=== PATIENT | male | born 1975 | race American Indian/Alaskan Native ===

== ENCOUNTER 2019-09-25 06:12 | Emergency (ER) | payer BC ==
[2019-09-25] MEDS ORDERED: Albuterol/Ipratropium 3.0-0.5 MG/3 ML Neb Soln NEB ONE (06:18)
[2019-09-25] MEDS ORDERED: methylPREDNISolone Sodium Succinate 125 MG/2 ML SDV IM ONE (06:18)
--- NOTE | 2019-09-25 06:20 | EDM.PDOC ---
ED HPI GENERAL MEDICAL PROBLEM - General Stated Complaint: TROUBLE BREATHING Time Seen by Provider: 09/25/19 06:19 Source of Information: Reports: Patient History Limitations: Reports: No Limitations - History of Present Illness INITIAL COMMENTS - FREE TEXT/NARRATIVE: onset Wednesday. worse this morning - Related Data Allergies Allergy/AdvReac Type Severity Reaction Status Date / Time No Known Allergies Allergy Verified 09/25/19 06:23 Home Meds: Home Meds Albuterol [Ventolin HFA] PRN 10/15/13 [History] Tiotropium [Spiriva Handihaler] 10/15/13 [History] Albuterol Sulfate 12/31/13 [History] Fluticasone/Salmeterol [Advair 500-50] 12/31/13 [History] Symbicort 12/31/13 [History] Past Medical History Respiratory History: Reports: Asthma, COPD Endocrine/Metabolic History: Reports: None - Infectious Disease History Infectious Disease History: Reports: Chicken Pox ED ROS GENERAL - Review of Systems Review Of Systems: Comprehensive ROS is negative, except as noted in HPI. ED EXAM, GENERAL - Physical Exam Exam: See Below Exam Limited By: No Limitations General Appearance: Alert, WD/WN, Mild Distress, Other (sob) Ears: Hearing Grossly Normal Throat/Mouth: Normal Voice, No Airway Compromise Head: Atraumatic Neck: Non-Tender, Full Range of Motion Respiratory/Chest: Decreased Breath Sounds, Rhonchi, Wheezing Cardiovascular: Regular Rate, Rhythm GI/Abdominal: Soft, Non-Tender Neurological: Alert, Oriented, Normal Cognition, Normal Gait, No Motor/Sensory Deficits Psychiatric: Normal Affect, Normal Mood Skin Exam: Warm, Dry, Normal Color Lymphatic: No Adenopathy Course - Vital Signs Last Recorded V/S: Last Vital Signs Temp 36.5 C 09/25/19 06:23 Pulse 84 09/25/19 06:23 Resp 18 09/25/19 06:23 BP 136/85 09/25/19 06:23 Pulse Ox 97 09/25/19 06:34 - Orders/Labs/Meds Orders: Active Orders 24 hr Category Date Time Status RT Aerosol Therapy [RC] ASDIRECTED Care 09/25/19 06:18 Active Meds: Medications Discontinued Medications Generic Name Dose Route Start Last Admin Trade Name Freq PRN Reason Stop Dose Admin Albuterol/Ipratropium 3 ml 09/25/19 06:18 09/25/19 06:30 Duoneb 3.0-0.5 Mg/3 Ml NEB 09/25/19 06:19 3 ml ONETIME ONE Administration Methylprednisolone Sodium Succinate 125 mg 09/25/19 06:18 09/25/19 06:30 Solu-Medrol IM 09/25/19 06:19 125 mg ONETIME ONE Administration - Re-Assessments/Exams Free Text/Narrative Re-Assessment/Exam: 09/25/19 06:55 re-exam; s/p duoneb + IM solumedrol = much better and ready to go home. Departure - Departure Time of Disposition: 06:55 Disposition: Home, Self-Care 01 Condition: Good Clinical Impression: Exacerbation of asthma - Discharge Information Instructions: Asthma, Adult, [id number] Forms: ED Department Discharge Additional Instructions: 1) continue neb treatment at home 2) don't sleep flat at night 3) follow up at clinic rx given; medrol dospak Sepsis Event Note - Focused Exam Vital Signs: Vital Signs Temp Pulse Resp BP Pulse Ox 09/25/19 06:34 97 09/25/19 06:23 36.5 C 84 18 136/85 94 L Date Exam was Performed: 09/25/19 Time Exam was Performed: 06:55 - My Orders Last 24 Hours: My Active Orders 09/25/19 06:18 RT Aerosol Therapy [RC] ASDIRECTED - Assessment/Plan Last 24 Hours: My Active Orders 09/25/19 06:18 RT Aerosol Therapy [RC] ASDIRECTED
[2019-09-25 06:30] VITALS: BP 136/85; PULSE 84
== END 2019-09-25 07:08 | disposition home or self-care (01) ==
LOC: DL.ED 06:12
DX: J45.901 Unspecified asthma with (acute) exacerbation (principal)
CPT/HCPCS: 96372; 99284; J2930; J7620-GY

== ENCOUNTER 2019-10-31 02:42 | Emergency (ER) | payer BC ==
[2019-10-31 02:50] VITALS: BP 157/71; PULSE 84
[2019-10-31] MEDS ORDERED: Albuterol 0.083% 2.5 MG/3 ML Neb Soln ONE (02:50)
[2019-10-31] MEDS ORDERED: Sodium Chloride 0.9% 10 ML Syringe FLUSH PRN (02:54)
[2019-10-31] MEDS ORDERED: Budesonide 0.5 MG/2 ML Neb Susp NEB ONE (02:55)
[2019-10-31] MEDS ORDERED: Albuterol/Ipratropium 3.0-0.5 MG/3 ML Neb Soln NEB ONE (02:55)
[2019-10-31] MEDS ORDERED: Albuterol 0.083% 2.5 MG/3 ML Neb Soln NEB ONE (02:55)
[2019-10-31] MEDS ORDERED: methylPREDNISolone Sodium Succinate 125 MG/2 ML SDV IVPUSH ONE (02:56)
--- NOTE | 2019-10-31 03:04 | EDM.PDOC ---
ED HPI GENERAL MEDICAL PROBLEM - General Chief Complaint: Respiratory Problem Stated Complaint: CHEST PAIN Time Seen by Provider: 10/31/19 02:50 Source of Information: Reports: Patient History Limitations: Reports: Language Barrier (The patient is deaf. ) - History of Present Illness INITIAL COMMENTS - FREE TEXT/NARRATIVE: Patient comes emergency department today with complaints of shortness of breath and difficulty breathing. HPI is somewhat limited as the patient is deaf but through communication by writing he has had a fever the last couple of days. He has had increase in tightness and shortness of breath. He does have a history of COPD. He has had increased amount of sputum production. His loss of taste or smell. Denies any COVID exposure. Denies any recent travel. He has some tightness in his chest but no chest pain. No diaphoresis. No abdominal pain. He does not smoke cigarettes any more. Chest Pain Score (Numeric/FACES): 5 - Related Data Allergies Allergy/AdvReac Type Severity Reaction Status Date / Time No Known Allergies Allergy Verified 10/31/19 02:54 Home Meds: Home Meds Albuterol [Ventolin HFA] PRN 10/15/13 [History] Tiotropium [Spiriva Handihaler] 10/15/13 [History] Albuterol Sulfate 12/31/13 [History] Fluticasone/Salmeterol [Advair 500-50] 12/31/13 [History] Symbicort 12/31/13 [History] Past Medical History Respiratory History: Reports: Asthma, COPD Endocrine/Metabolic History: Reports: None - Infectious Disease History Infectious Disease History: Reports: Chicken Pox Social & Family History - Tobacco Use Smoking Status *Q: Never Smoker Second Hand Smoke Exposure: No - Caffeine Use Caffeine Use: Reports: None - Recreational Drug Use Recreational Drug Use: No ED ROS GENERAL - Review of Systems Review Of Systems: Comprehensive ROS is negative, except as noted in HPI. ED EXAM, GENERAL - Physical Exam Exam: See Below Free Text/Narrative:: Pt has a congested cough and he is sitting in the tri-pod position. Exam Limited By: Language Barrier (Deaf) General Appearance: Alert, WD/WN, Moderate Distress Eye Exam: Bilateral Eye: EOMI Ears: Normal External Exam Nose: Normal Inspection Throat/Mouth: Normal Inspection, Normal Lips, Normal Oropharynx, Normal Voice Head: Atraumatic, Normocephalic Neck: Normal Inspection, Supple, Non-Tender, Full Range of Motion Respiratory/Chest: Chest Non-Tender, Decreased Breath Sounds (throughout), Wheezing (inspiratory and expiratory sitting in the tri-pod position. ), Accessory Muscle Use. No: Rhonchi, Retractions Cardiovascular: Normal Peripheral Pulses, Regular Rate, Rhythm GI/Abdominal: Normal Bowel Sounds, Soft (Male) Exam: Deferred Rectal (Males) Exam: Deferred Back Exam: Normal Inspection Extremities: Normal Inspection, Normal Range of Motion, Normal Capillary Refill Neurological: Alert, Oriented, Normal Cognition, No Motor/Sensory Deficits Psychiatric: Normal Affect, Normal Mood Skin Exam: Intact, No Rash, Diaphoretic, Pallor Course - Vital Signs Last Recorded V/S: Last Vital Signs Temp 98.1 F 10/31/19 02:46 Pulse 84 10/31/19 02:46 Resp 24 H 10/31/19 02:46 BP 157/71 H 10/31/19 02:46 Pulse Ox 96 10/31/19 02:46 - Orders/Labs/Meds Orders: Active Orders 24 hr Category Date Time Status Peripheral IV Care [RC] . DIRECTED Care 10/31/19 02:55 Active RT Aerosol Therapy [RC] ASDIRECTED Care 10/31/19 02:55 Active Peripheral IV Insertion Adult [OM.PC] Stat Oth 10/31/19 02:54 Ordered Labs: Laboratory Tests 10/31/19 10/31/19 10/31/19 Range/Units 02:50 02:50 03:00 WBC 6.2 (5.0-10.0) 10^3/uL RBC 4.96 (4.6-6.2) 10^6/uL Hgb 15.2 (14.0-18.0) g/dL Hct 45.1 (40.0-54.0) % MCV 90.9 (80-100) fL MCH 30.6 (27.0-34.0) pg MCHC 33.7 (33.0-35.0) g/dL Plt Count 213 (150-450) 10^3/uL Neut % (Auto) 44.6 (42.2-75.2) % Lymph % (Auto) 36.9 (20.5-50.1) % [place] % (Auto) 9.8 H (2-8) % Eos % (Auto) 8.2 H (1.0-3.0) % Baso % (Auto) 0.5 (0.0-1.0) % Sodium 142 (136-145) mmol/L Potassium 4.0 (3.5-5.1) mmol/L Chloride 105 (98-107) mmol/L Carbon Dioxide 30 (21-32) mmol/L Anion Gap 11.0 (7-13) mEq/L BUN 23 H (7-18) mg/dL Creatinine 0.84 (0.70-1.30) mg/dL Est Cr Clr Drug Dosing 106.31 mL/min Estimated GFR (MDRD) > 60 BUN/Creatinine Ratio 27.4 (No establ ref range) Glucose 96 (74-99) mg/dL Calcium 9.0 (8.5-10.1) mg/dL Total Bilirubin 0.4 (0.2-1.0) mg/dL AST 14 L (15-37) U/L ALT 32 (16-63) U/L Alkaline Phosphatase 87 (46-116) U/L C-Reactive Protein < 0.2 (0.0-0.9) mg/dL Total Protein 7.6 (6.4-8.2) g/dL Albumin 3.8 (3.4-5.0) g/dL Globulin 3.8 Albumin/Globulin Ratio 1.0 COVID-19 (CARI) Negative (NEGATIVE) Meds: Medications Discontinued Medications Generic Name Dose Route Start Last Admin Trade Name Margret PRN Reason Stop Dose Admin Albuterol Confirm 10/31/19 02:50 10/31/19 03:18 Proventil Neb Soln Administered 10/31/19 02:51 Not Given Dose 2.5 mg .ROUTE .STK-MED ONE Albuterol 2.5 mg 10/31/19 02:55 10/31/19 03:17 Proventil Neb Soln NEB 10/31/19 02:56 2.5 mg ONETIME ONE Administration Albuterol/Ipratropium 3 ml 10/31/19 02:55 10/31/19 03:17 Duoneb 3.0-0.5 Mg/3 Ml NEB 10/31/19 02:56 3 ml ONETIME ONE Administration Budesonide 1 mg 10/31/19 02:55 10/31/19 03:16 Pulmicort NEB 10/31/19 02:56 1 mg ONETIME ONE Administration Doxycycline Hyclate 100 mg 10/31/19 03:46 10/31/19 04:06 Vibramycin PO 10/31/19 03:47 100 mg ONETIME ONE Administration Methylprednisolone Sodium Succinate 125 mg 10/31/19 02:56 10/31/19 03:18 Solu-Medrol IVPUSH 10/31/19 02:57 125 mg ONETIME ONE Administration Sodium Chloride 10 ml 10/31/19 02:54 10/31/19 03:19 Saline Flush FLUSH 10 ml ASDIRECTED PRN Administration Keep Vein Open - Radiology Interpretation Free Text/Narrative:: X-ray per radiology states no acute findings. Although when I look at the chest x-ray when compared to 1 in May 2015 in the right lower lobe it looks like there is either some early or small atelectasis unlikely pneumonia. - Re-Assessments/Exams Free Text/Narrative Re-Assessment/Exam: 10/31/19 03:49 Patient was given albuterol nebulizer as well as a DuoNeb and then budesonide. Solu-Medrol 125 mg IV push. The patient's respiratory distress was much improved following the above therapy. We had complete resolution of the inspiratory wheezing and he has some faint expiratory wheezing. His work of breathing is much improved. He has not tripod position anymore. He appears in no acute distress. His chest x-ray was read by radiology as normal although I have concerns for some very small atelectasis in the right lower lobe when compared to previous it does not look like it consolidate this is very minor. 10/31/19 03:51 With a rather impressive amount of COPD exacerbation we will place him on doxycycline and cover him empirically for the next 7 days. We will also give him a burst dose steroids his first dose was given in the emergency department given prescription for prednisone for 60 mg for the next 5 days. He does have a nebulizer at home which she can use for acute symptoms. He is comfortable with this plan his questions are answered. Departure - Departure Time of Disposition: 04:00 Disposition: Home, Self-Care 01 Clinical Impression: COPD with exacerbation - Discharge Information Instructions: Chronic Obstructive Pulmonary Disease Exacerbation, [id number] Referrals: PCP,None [Primary Care Provider] - Forms: ED Department Discharge Additional Instructions: Lots of fluids over the next few days. This will help thin the secretions so you can clear them more easily. Continue your home nebulizers. If your really SOB use an Albuterol or Ipratropium nebulizer instead of an inhaler this will work much better to get the medication all the way through the lungs. Prednisone 60mg a day for the next 5 days. RX given to the patient. Doxycycline 1 tablet twice daily for the next 7 days. RX given to the patient. Return to the ED if new or worsening symptoms. Follow up with PCP in the next 4-6 days if not improving sooner if worse. Sepsis Event Note (ED) - Evaluation Sepsis Screening Result: No Definite Risk - My Orders Last 24 Hours: My Active Orders 10/31/19 02:54 Peripheral IV Insertion Adult [OM.PC] Stat 10/31/19 02:55 Peripheral IV Care [RC] . DIRECTED RT Aerosol Therapy [RC] ASDIRECTED - Assessment/Plan Last 24 Hours: My Active Orders 10/31/19 02:54 Peripheral IV Insertion Adult [OM.PC] Stat 10/31/19 02:55 Peripheral IV Care [RC] . DIRECTED RT Aerosol Therapy [RC] ASDIRECTED Assessment:: COPD exacerbation. Plan: Lots of fluids over the next few days. This will help thin the secretions so you can clear them more easily. Continue your home nebulizers. If your really SOB use an Albuterol or Ipratropium nebulizer instead of an inhaler this will work much better to get the medication all the way through the lungs. Prednisone 60mg a day for the next 5 days. RX given to the patient. Doxycycline 1 tablet twice daily for the next 7 days. RX given to the patient. Return to the ED if new or worsening symptoms. Follow up with PCP in the next 4-6 days if not improving sooner if worse.
[2019-10-31 03:12] LABS: CHLORIDE,CL 105 mmol/L (98-107); SODIUM,NA 142 mmol/L (136-145)
[2019-10-31] MEDS ORDERED: Doxycycline 100 MG Cap PO ONE (03:46)
--- NOTE | 2019-10-31 03:48 | CR ---
PROCEDURE INFORMATION: Exam: XR Chest, 2 Views Exam date and time: 10/31/2019 2:55 AM Age: 44 years old Clinical indication: Shortness of breath and wheezing; Additional info: SOB wheezing TECHNIQUE: Imaging protocol: XR of the chest Views: 2 views. COMPARISON: CR Chest 2V 06/05/2015 10:13 PM FINDINGS: Lungs: Unremarkable. No consolidation. Pleural space: Unremarkable. No pleural effusion. No pneumothorax. Heart/Mediastinum: Unremarkable. No cardiomegaly. Bones/joints: Unremarkable. IMPRESSION: No acute findings.
== END 2019-10-31 04:18 | disposition home or self-care (01) ==
LOC: DL.ED 02:42
DX: J44.1 Chronic obstructive pulmonary disease with (acute) exacerbation (principal); Z20.828 Contact with and (suspected) exposure to other viral communicable diseases
CPT/HCPCS: 36415; 71046; 80053; 85025; 86140; 87635; 96374; 99285; A9270; J2930; 99283; J7613-GY; J7620-GY; U0002

== ENCOUNTER 2020-04-26 13:39 | Emergency (ER) | payer BC ==
[2020-04-26] MEDS ORDERED: Albuterol/Ipratropium 3.0-0.5 MG/3 ML Neb Soln NEB ONE (13:59)
[2020-04-26] MEDS ORDERED: predniSONE 20 MG Tab PO ONE (13:59)
[2020-04-26 14:14] VITALS: BP 133/84; PULSE 84
--- NOTE | 2020-04-26 15:27 | EDM.PDOC ---
Scribed by Angélica Moctezuma 04/26/20 1412 for Aryan Collado MD ED HPI GENERAL MEDICAL PROBLEM - General Chief Complaint: Respiratory Problem Stated Complaint: ASTHMA Time Seen by Provider: 04/26/20 13:51 Source of Information: Reports: Patient, RN, RN Notes Reviewed History Limitations: Reports: No Limitations - History of Present Illness INITIAL COMMENTS - FREE TEXT/NARRATIVE: Patient presents to ED by POV stating that he has been wheezing for a few days, using inhaler and nebulizer but they are not working. Usually if he wheezes the breathing treatments stop the wheezing right away. Admits to mild runny nose. Denies difficulty breathing and fever. He doesn't know if he has had any COVID exposures but has been around people. Onset: Gradual Duration: Getting Worse Location: Reports: Chest Quality: Reports: Ache Severity: Moderate Improves with: Reports: None Worsens with: Reports: None Associated Symptoms: Reports: No Other Symptoms Treatments WRITER: Reports: Other (see below) (breathing treatments) - Related Data Allergies Allergy/AdvReac Type Severity Reaction Status Date / Time No Known Allergies Allergy Verified 04/26/20 13:46 Home Meds: Home Meds Albuterol [Ventolin HFA] 2 puff INH Q4H PRN 10/15/13 [History] Tiotropium [Spiriva Handihaler] 1 puff INH DAILY 10/15/13 [History] Albuterol Sulfate 1 unit INH Q4H PRN 12/31/13 [History] Fluticasone/Salmeterol [Advair 500-50] 1 puff INH BID 12/31/13 [History] Symbicort 1 puff INH BID 12/31/13 [History] Past Medical History Respiratory History: Reports: Asthma, COPD Endocrine/Metabolic History: Reports: None - Infectious Disease History Infectious Disease History: Reports: Chicken Pox Social & Family History - Family History Family Medical History: Unobtainable - Caffeine Use Caffeine Use: Reports: None - Living Situation & Occupation Occupation: Employed ED ROS GENERAL - Review of Systems Review Of Systems: Comprehensive ROS is negative, except as noted in HPI. ED EXAM, GENERAL - Physical Exam Exam: See Below Exam Limited By: No Limitations General Appearance: Alert, WD/WN, No Apparent Distress Eye Exam: Bilateral Eye: Normal Inspection Nose: Normal Mucosa, No Blood, Nasal Drainage (Mild, clear) Throat/Mouth: Normal Inspection, No Airway Compromise Head: Atraumatic, Normocephalic Neck: Normal Inspection, Supple, Non-Tender, Full Range of Motion Respiratory/Chest: No Respiratory Distress, No Accessory Muscle Use, Chest Non- Tender, Wheezing. No: Respiratory Distress, Crackles, Rales, Rhonchi Cardiovascular: Regular Rate, Rhythm Extremities: Normal Inspection, No Pedal Edema Neurological: Alert, Oriented, No Motor/Sensory Deficits Psychiatric: Normal Mood Skin Exam: Warm, Dry, Intact, Normal Color, No Rash Course - Vital Signs Last Recorded V/S: Last Vital Signs Temp 98 F 04/26/20 13:40 Pulse 84 04/26/20 13:40 Resp 18 04/26/20 13:40 BP 133/84 04/26/20 13:40 Pulse Ox 96 04/26/20 13:40 - Orders/Labs/Meds Orders: Active Orders 24 hr Category Date Time Status RT Aerosol Therapy [RC] ASDIRECTED Care 04/26/20 13:59 Active Labs: Laboratory Tests 04/26/20 Range/Units 14:10 SARS-CoV-2 RNA (CARI) Negative (NEGATIVE) Meds: Medications Discontinued Medications Generic Name Dose Route Start Last Admin Trade Name Freq PRN Reason Stop Dose Admin Albuterol/Ipratropium 3 ml 04/26/20 13:59 04/26/20 14:17 Duoneb 3.0-0.5 Mg/3 Ml NEB 04/26/20 14:00 3 ml ONETIME ONE Administration Prednisone 60 mg 04/26/20 13:59 04/26/20 14:16 Prednisone PO 04/26/20 14:00 60 mg ONETIME ONE Administration Departure - Departure Time of Disposition: 14:09 Disposition: Home, Self-Care 01 Condition: Good Clinical Impression: COPD with exacerbation - Discharge Information *PRESCRIPTION DRUG MONITORING PROGRAM REVIEWED*: Not Applicable *COPY OF PRESCRIPTION DRUG MONITORING REPORT IN PATIENT VITOR: Not Applicable Instructions: Chronic Obstructive Pulmonary Disease Exacerbation, [id number] Forms: ED Department Discharge Additional Instructions: Rx: DuoNeb Solution Rx: Prednisone 20mg Follow up in clinic if not improving as expected next week. Return to ER if you develop any difficulty breathing. Sepsis Event Note (ED) - Focused Exam Vital Signs: Vital Signs Temp Pulse Resp BP Pulse Ox 04/26/20 13:40 98 F 84 18 133/84 96 - My Orders Last 24 Hours: My Active Orders 04/26/20 13:59 RT Aerosol Therapy [RC] ASDIRECTED - Assessment/Plan Last 24 Hours: My Active Orders 04/26/20 13:59 RT Aerosol Therapy [RC] ASDIRECTED I have read and agree with the documentation that has been completed regarding this visit. By signing this record, I attest that the documentation was completed in my physical presence and is an accurate record of the encounter.
== END 2020-04-26 15:41 | disposition home or self-care (01) ==
LOC: DL.ED 13:39
DX: J44.1 Chronic obstructive pulmonary disease with (acute) exacerbation (principal); Z20.822 Contact with and (suspected) exposure to COVID-19; Z79.899 Other long term (current) drug therapy; Z20.828 Contact with and (suspected) exposure to other viral communicable diseases
CPT/HCPCS: 87635; 94640; 99285; J7512; 99283; J7620-GY; U0002

== ENCOUNTER 2020-06-14 20:47 | Emergency (ER) | payer BC ==
[2020-06-14 20:58] VITALS: BP 142/76; PULSE 100
[2020-06-14] MEDS ORDERED: methylPREDNISolone Sodium Succinate 125 MG/2 ML SDV IVPUSH ONE (21:02)
[2020-06-14] MEDS ORDERED: Albuterol/Ipratropium 3.0-0.5 MG/3 ML Neb Soln NEB ONE (21:04)
--- NOTE | 2020-06-14 21:39 | CR ---
PROCEDURE INFORMATION: Exam: XR Chest, 1 View Exam date and time: 06/14/2020 9:33 PM Age: 44 years old Clinical indication: Shortness of breath and other: Asthma; Additional info: Asthma SOB TECHNIQUE: Imaging protocol: XR of the chest Views: 1 view. COMPARISON: CR Chest 2V 10/31/2019 2:55 AM FINDINGS: Lungs: Unremarkable. No consolidation. Pleural spaces: Unremarkable. No pleural effusion. No pneumothorax. Heart/Mediastinum: Unremarkable. No cardiomegaly. Bones/joints: Unremarkable. IMPRESSION: No acute findings.
[2020-06-14 21:40] LABS: ANION GAP 12.7 mEq/L (7-13); CHLORIDE,CL 103 mmol/L (98-107); SODIUM,NA 141 mmol/L (136-145)
--- NOTE | 2020-06-14 22:06 | EDM.PDOC ---
ED HPI GENERAL MEDICAL PROBLEM - General Chief Complaint: Respiratory Problem Stated Complaint: UNABLE TO BREATH Time Seen by Provider: 06/14/20 20:55 Source of Information: Reports: Patient History Limitations: Reports: No Limitations - History of Present Illness INITIAL COMMENTS - FREE TEXT/NARRATIVE: ED c/o SOB started tonight, using inhaler frequently but not helping, No fever, Cough dry. Hx asthma. Bilateral Chest Pain Score (Numeric/FACES): 4 - Related Data Allergies Allergy/AdvReac Type Severity Reaction Status Date / Time No Known Allergies Allergy Verified 04/26/20 13:46 Home Meds: Home Meds Albuterol [Ventolin HFA] 2 puff INH Q4H PRN 10/15/13 [History] Tiotropium [Spiriva Handihaler] 1 puff INH DAILY 10/15/13 [History] Albuterol Sulfate 1 unit INH Q4H PRN 12/31/13 [History] Fluticasone/Salmeterol [Advair 500-50] 1 puff INH BID 12/31/13 [History] Symbicort 1 puff INH BID 12/31/13 [History] Past Medical History Respiratory History: Reports: Asthma, COPD Endocrine/Metabolic History: Reports: None - Infectious Disease History Infectious Disease History: Reports: Chicken Pox, Novel Coronavirus Social & Family History - Tobacco Use Tobacco Use Status *Q: Never Tobacco User Second Hand Smoke Exposure: No - Caffeine Use Caffeine Use: Reports: None - Recreational Drug Use Recreational Drug Use: No ED ROS GENERAL - Review of Systems Review Of Systems: Comprehensive ROS is negative, except as noted in HPI. ED EXAM, GENERAL - Physical Exam Exam: See Below Exam Limited By: No Limitations General Appearance: Alert, Mild Distress Eye Exam: Bilateral Eye: EOMI Ears: No: Hearing Grossly Normal (deaf) Nose: Normal Inspection Throat/Mouth: Normal Inspection Head: Atraumatic, Normocephalic Neck: Normal Inspection Respiratory/Chest: Wheezing, Accessory Muscle Use Cardiovascular: Normal Peripheral Pulses, Regular Rate, Rhythm GI/Abdominal: Normal Bowel Sounds, Soft Extremities: Normal Inspection, Normal Range of Motion Neurological: Alert, Oriented, Normal Cognition Psychiatric: Normal Affect Skin Exam: Warm, Dry, Intact, Normal Color Course - Vital Signs Last Recorded V/S: Last Vital Signs Temp 97.8 F 06/14/20 20:50 Pulse 100 06/14/20 20:50 Resp 24 H 06/14/20 20:50 BP 142/76 H 06/14/20 20:50 Pulse Ox 94 L 06/14/20 20:50 - Orders/Labs/Meds Labs: Laboratory Tests 06/14/20 06/14/20 06/14/20 Range/Units 21:15 21:15 21:15 WBC 6.2 (5.0-10.0) 10^3/uL RBC 4.91 (4.6-6.2) 10^6/uL Hgb 15.2 (14.0-18.0) g/dL Hct 44.6 (40.0-54.0) % MCV 90.8 (80-100) fL MCH 31.0 (27.0-34.0) pg MCHC 34.1 (33.0-35.0) g/dL Plt Count 223 (150-450) 10^3/uL Neut % (Auto) 48.6 (42.2-75.2) % Lymph % (Auto) 34.0 (20.5-50.1) % [place] % (Auto) 8.5 H (2-8) % Eos % (Auto) 8.4 H (1.0-3.0) % Baso % (Auto) 0.5 (0.0-1.0) % Sodium 141 (136-145) mmol/L Potassium 3.7 (3.5-5.1) mmol/L Chloride 103 (98-107) mmol/L Carbon Dioxide 29 (21-32) mmol/L Anion Gap 12.7 (7-13) mEq/L BUN 19 H (7-18) mg/dL Creatinine 0.81 (0.70-1.30) mg/dL Est Cr Clr Drug Dosing 125.08 mL/min Estimated GFR (MDRD) > 60 BUN/Creatinine Ratio 23.5 (No establ ref range) Glucose 121 H (74-99) mg/dL Lactic Acid 0.9 (0.4-2.0) mmol/L Calcium 8.8 (8.5-10.1) mg/dL Total Bilirubin 0.4 (0.2-1.0) mg/dL AST 15 (15-37) U/L ALT 28 (16-63) U/L Alkaline Phosphatase 87 (46-116) U/L Total Protein 7.9 (6.4-8.2) g/dL Albumin 3.8 (3.4-5.0) g/dL Globulin 4.1 Albumin/Globulin Ratio 0.9 Meds: Medications Discontinued Medications Generic Name Dose Route Start Last Admin Trade Name Christianoq PRN Reason Stop Dose Admin Albuterol/Ipratropium 3 ml 06/14/20 21:04 06/14/20 21:18 Duoneb 3.0-0.5 Mg/3 Ml NEB 06/14/20 21:05 3 ml ONETIME ONE Administration Methylprednisolone Sodium Succinate 125 mg 06/14/20 21:02 06/14/20 21:19 Solu-Medrol IVPUSH 06/14/20 21:03 125 mg ONETIME ONE Administration - Re-Assessments/Exams Free Text/Narrative Re-Assessment/Exam: 06/15/20 01:59 Improved following solumedrol and nebulizer. Departure - Departure Time of Disposition: 22:03 Disposition: Home, Self-Care 01 Condition: Good Clinical Impression: Exacerbation of asthma Qualifiers: Asthma severity: moderate Asthma persistence: persistent Qualified Code(s): J45.41 - Moderate persistent asthma with (acute) exacerbation - Discharge Information *PRESCRIPTION DRUG MONITORING PROGRAM REVIEWED*: No *COPY OF PRESCRIPTION DRUG MONITORING REPORT IN PATIENT VITOR: No Instructions: Asthma, Adult, [id number] Forms: ED Department Discharge Additional Instructions: albuterol neb every 4 hours as needed prednisone as ordered follow up if symptoms getting worse agin or having to use inhalers/nebulizer more often follow up if fever or productive cough Sepsis Event Note (ED) - Evaluation Sepsis Screening Result: No Definite Risk - Focused Exam Vital Signs: Vital Signs Temp Pulse Resp BP Pulse Ox 06/14/20 20:50 97.8 F 100 24 H 142/76 H 94 L
== END 2020-06-14 22:11 | disposition home or self-care (01) ==
LOC: DL.ED 20:47
DX: J45.41 Moderate persistent asthma with (acute) exacerbation (principal); Z79.899 Other long term (current) drug therapy
CPT/HCPCS: 36415; 71045; 80053; 83605; 85025; 96374; 99285; J2930; 99283; J7620-GY

== ENCOUNTER 2020-07-15 21:41 | Emergency (ER) | payer BC ==
[2020-07-15 21:52] VITALS: BP 137/88; PULSE 95
[2020-07-15] MEDS ORDERED: methylPREDNISolone Sodium Succinate 125 MG/2 ML SDV IVPUSH ONE (22:36)
[2020-07-15] MEDS ORDERED: Albuterol/Ipratropium 3.0-0.5 MG/3 ML Neb Soln NEB ONE (22:36)
[2020-07-15 23:06] LABS: ANION GAP 12.9 mEq/L (7-13); CHLORIDE,CL 104 mmol/L (98-107); SODIUM,NA 140 mmol/L (136-145)
--- NOTE | 2020-07-15 23:26 | CR ---
PROCEDURE INFORMATION: Exam: XR Chest Exam date and time: 07/15/2020 10:50 PM Age: 45 years old Clinical indication: Cough and wheezing; Additional info: Cough wheeze TECHNIQUE: Imaging protocol: XR of the chest Views: 1 view. COMPARISON: CR Chest 1V Frontal 06/14/2020 9:33 PM FINDINGS: Lungs: Unremarkable. No consolidation. Pleural spaces: Unremarkable. No pleural effusion. No pneumothorax. Heart/Mediastinum: Unremarkable. No cardiomegaly. Bones/joints: Unremarkable. IMPRESSION: 1. No acute findings. 2. No lung infiltrates. 3. No hyperinflation.
--- NOTE | 2020-07-15 23:33 | EDM.PDOC ---
ED HPI GENERAL MEDICAL PROBLEM - General Chief Complaint: Respiratory Problem Stated Complaint: CHEST TIGHTNESS Time Seen by Provider: 07/15/20 21:55 Source of Information: Reports: Patient, RN History Limitations: Reports: No Limitations - History of Present Illness INITIAL COMMENTS - FREE TEXT/NARRATIVE: ED with c/o cough and wheeze, inhaler not helping. Hx asthma. Last used inhaler approximately 2 hours prior. Onset yesterday. No fever. No COVID exposure - Related Data Allergies Allergy/AdvReac Type Severity Reaction Status Date / Time No Known Allergies Allergy Verified 04/26/20 13:46 Home Meds: Home Meds Albuterol [Ventolin HFA] 2 puff INH Q4H PRN 10/15/13 [History] Tiotropium [Spiriva Handihaler] 1 puff INH DAILY 10/15/13 [History] Albuterol Sulfate 1 unit INH Q4H PRN 12/31/13 [History] Fluticasone/Salmeterol [Advair 500-50] 1 puff INH BID 12/31/13 [History] Symbicort 1 puff INH BID 12/31/13 [History] Past Medical History Respiratory History: Reports: Asthma, COPD Endocrine/Metabolic History: Reports: None - Infectious Disease History Infectious Disease History: Reports: Chicken Pox, Novel Coronavirus Social & Family History - Tobacco Use Tobacco Use Status *Q: Never Tobacco User Second Hand Smoke Exposure: No - Caffeine Use Caffeine Use: Reports: None - Recreational Drug Use Recreational Drug Use: No ED ROS GENERAL - Review of Systems Review Of Systems: Comprehensive ROS is negative, except as noted in HPI. ED EXAM, GENERAL - Physical Exam Exam: See Below Exam Limited By: No Limitations General Appearance: Alert, Mild Distress Eye Exam: Bilateral Eye: EOMI Ears: Normal External Exam, Hearing Loss (deaf) Nose: Normal Inspection Throat/Mouth: Normal Inspection, Normal Lips, Normal Voice Head: Atraumatic, Normocephalic Respiratory/Chest: Decreased Breath Sounds, Rhonchi (anterior right clears with cogh), Wheezing (bilateral) Cardiovascular: Normal Peripheral Pulses, Regular Rate, Rhythm, No JVD GI/Abdominal: Normal Bowel Sounds, Soft Back Exam: Normal Inspection, Full Range of Motion Neurological: Alert, Oriented, Normal Cognition Psychiatric: Normal Mood Skin Exam: Warm, Dry, Intact, Normal Color Course - Vital Signs Last Recorded V/S: Last Vital Signs Temp 98.1 F 07/15/20 21:47 Pulse 95 07/15/20 21:47 Resp 18 07/15/20 21:47 BP 137/88 07/15/20 21:47 Pulse Ox 94 L 07/15/20 21:47 - Orders/Labs/Meds Orders: Active Orders 24 hr Category Date Time Status CXR [Chest 2V] [CR] Urgent Exams 07/15/20 22:36 Stop Req Labs: Laboratory Tests 07/15/20 07/15/20 Range/Units 22:46 22:46 WBC 8.2 (5.0-10.0) 10^3/uL RBC 4.84 (4.6-6.2) 10^6/uL Hgb 15.0 (14.0-18.0) g/dL Hct 44.2 (40.0-54.0) % MCV 91.3 (80-100) fL MCH 31.0 (27.0-34.0) pg MCHC 33.9 (33.0-35.0) g/dL Plt Count 199 (150-450) 10^3/uL Neut % (Auto) 79.9 H (42.2-75.2) % Lymph % (Auto) 8.4 L (20.5-50.1) % [place] % (Auto) 5.5 (2-8) % Eos % (Auto) 5.8 H (1.0-3.0) % Baso % (Auto) 0.4 (0.0-1.0) % Sodium 140 (136-145) mmol/L Potassium 3.9 (3.5-5.1) mmol/L Chloride 104 (98-107) mmol/L Carbon Dioxide 27 (21-32) mmol/L Anion Gap 12.9 (7-13) mEq/L BUN 17 (7-18) mg/dL Creatinine 0.92 (0.70-1.30) mg/dL Est Cr Clr Drug Dosing 108.95 mL/min Estimated GFR (MDRD) > 60 Glucose 150 H (74-99) mg/dL Calcium 8.4 L (8.5-10.1) mg/dL Meds: Medications Discontinued Medications Generic Name Dose Route Start Last Admin Trade Name Freq PRN Reason Stop Dose Admin Albuterol/Ipratropium 3 ml 03/22/21 22:36 07/15/20 22:55 Albuterol/Ipratropium 3.0-0.5 Mg/3 Ml Neb Soln NEB 07/15/20 22:37 3 ml ONETIME ONE Administration Methylprednisolone Sodium Succinate 125 mg 07/15/20 22:36 07/15/20 23:08 Methylprednisolone Sodium Succinate 125 Mg/2 Ml Sdv IVPUSH 07/15/20 22:37 125 mg ONETIME ONE Administration Departure - Departure Time of Disposition: 23:30 Disposition: Home, Self-Care 01 Condition: Good Clinical Impression: Asthma with exacerbation Qualifiers: Asthma severity: moderate Asthma persistence: persistent Qualified Code(s): J45.41 - Moderate persistent asthma with (acute) exacerbation - Discharge Information *PRESCRIPTION DRUG MONITORING PROGRAM REVIEWED*: No *COPY OF PRESCRIPTION DRUG MONITORING REPORT IN PATIENT VITOR: No Instructions: Asthma, Adult, [id number] Forms: ED Department Discharge Additional Instructions: Prednisone as ordered albuterol inhaler every 4 hours as needed clinic follow up recheck later this week urgent follow up if fever or worsening of symptoms Sepsis Event Note (ED) - Evaluation Sepsis Screening Result: No Definite Risk - Focused Exam Vital Signs: Vital Signs Temp Pulse Resp BP Pulse Ox 07/15/20 21:47 98.1 F 95 18 137/88 94 L - My Orders Last 24 Hours: My Active Orders 07/15/20 22:36 CXR [Chest 2V] [CR] Urgent - Assessment/Plan Last 24 Hours: My Active Orders 07/15/20 22:36 CXR [Chest 2V] [CR] Urgent
== END 2020-07-15 23:50 | disposition home or self-care (01) ==
LOC: DL.ED 21:41
DX: J45.41 Moderate persistent asthma with (acute) exacerbation (principal); Z86.16 Personal history of COVID-19
CPT/HCPCS: 36415; 71045; 80048; 85025; 94640; 96374; 99283; 99285; J2930; J7620-GY

== ENCOUNTER 2021-05-18 06:14 | Emergency (ER) | payer BC ==
[2021-05-18] MEDS ORDERED: methylPREDNISolone Sodium Succinate 125 MG/2 ML SDV IVPUSH ONE (06:27)
[2021-05-18] MEDS ORDERED: Albuterol/Ipratropium 3.0-0.5 MG/3 ML Neb Soln NEB ONE (06:27)
[2021-05-18] MEDS ORDERED: Magnesium Sulfate/Water 2 GM in Premix Bag 1 BAG IV ONE (06:28)
[2021-05-18 06:45] VITALS: BP 128/95
[2021-05-18 06:52] VITALS: PULSE 95
== END 2021-05-18 07:55 | disposition home or self-care (01) ==
LOC: DL.ED 06:14
DX: J45.21 Mild intermittent asthma with (acute) exacerbation (principal)
CPT/HCPCS: 71045; 96365; 96375; 99285; J2930; J3475; J7620-GY

== ENCOUNTER 2021-08-17 17:57 | Emergency (ER) | payer BC ==
[2021-08-17] MEDS ORDERED: Albuterol/Ipratropium 3.0-0.5 MG/3 ML Neb Soln NEB ONE (18:04)
[2021-08-17] MEDS ORDERED: methylPREDNISolone Sodium Succinate 125 MG/2 ML SDV IVPUSH ONE (18:06)
[2021-08-17 18:44] LABS: ANION GAP 12.8 mEq/L (7-13); CHLORIDE,CL 102 mmol/L (98-107); SODIUM,NA 138 mmol/L (136-145)
[2021-08-17] MEDS ORDERED: Amoxicillin/Clavulanate K 875-125 MG Tab PO ONE (18:52)
[2021-08-17 19:33] VITALS: BP 134/90; PULSE 74
== END 2021-08-17 19:22 | disposition home or self-care (01) ==
LOC: DL.ED 17:57
DX: J45.41 Moderate persistent asthma with (acute) exacerbation (principal); Z86.16 Personal history of COVID-19
CPT/HCPCS: 36415; 71045; 80053; 83605; 85025; 87040; 94640; 96374; 99283; 99284-25; A9270-GY; J2930; J7620-GY

== ENCOUNTER 2021-11-25 18:24 | Emergency (ER) | payer BC ==
[2021-11-25 18:40] VITALS: BP 142/98; PULSE 62
== END 2021-11-25 20:22 | disposition home or self-care (01) ==
LOC: DL.ED 18:24
DX: S93.402A Sprain of unspecified ligament of left ankle, initial encounter (principal); J44.9 Chronic obstructive pulmonary disease, unspecified; X50.1XXA Overexertion from prolonged static or awkward postures, initial encounter; Y99.0 Civilian activity done for income or pay
CPT/HCPCS: 73610-LT; 99282; 99283

== ENCOUNTER 2022-04-18 20:14 | Emergency (ER) | payer BC ==
[2022-04-18] MEDS ORDERED: predniSONE 10 MG Tab PO ONE (20:15)
[2022-04-18] MEDS ORDERED: methylPREDNISolone Sodium Succinate 125 MG/2 ML SDV IVPUSH ONE (20:25)
[2022-04-18] MEDS ORDERED: Albuterol/Ipratropium 3.0-0.5 MG/3 ML Neb Soln NEB ONE (20:25)
[2022-04-18 20:26] VITALS: BP 133/93; PULSE 84
[2022-04-18] MEDS ORDERED: Sodium Chloride 0.9% 10 ML Syringe FLUSH PRN (20:27)
[2022-04-18] MEDS ORDERED: predniSONE 10 MG Tab ONE (21:21)
== END 2022-04-18 21:31 | disposition home or self-care (01) ==
LOC: DL.ED 20:14
DX: J45.41 Moderate persistent asthma with (acute) exacerbation (principal)
CPT/HCPCS: 94640; 96374; 99284; J2930; J3490; J7512; J7620-GY

== ENCOUNTER 2022-05-25 17:25 | Emergency (ER) | payer BC ==
[2022-05-25] MEDS ORDERED: Albuterol/Ipratropium 3.0-0.5 MG/3 ML Neb Soln NEB ONE (17:50)
[2022-05-25 17:51] VITALS: BP 119/81
[2022-05-25] MEDS ORDERED: Sodium Chloride 0.9% 10 ML Syringe FLUSH PRN (17:55)
[2022-05-25] MEDS ORDERED: methylPREDNISolone Sodium Succinate 125 MG/2 ML SDV IVPUSH ONE (17:55)
[2022-05-25 18:07] VITALS: PULSE 87
[2022-05-25 18:25] LABS: ANION GAP 9.1 mEq/L (7-13)
== END 2022-05-25 18:59 | disposition home or self-care (01) ==
LOC: DL.ED 17:25
DX: J44.1 Chronic obstructive pulmonary disease with (acute) exacerbation (principal); I10 Essential (primary) hypertension; Z86.16 Personal history of COVID-19
CPT/HCPCS: 36415; 71046; 80053; 83605; 85025; 94640; 96374; 99284; 99285-25; J2930; J3490; J7620-GY

== ENCOUNTER 2022-06-21 22:15 | Emergency (ER) | payer BC ==
[2022-06-21] MEDS ORDERED: methylPREDNISolone Sodium Succinate 125 MG/2 ML SDV IVPUSH ONE (22:34)
[2022-06-21] MEDS ORDERED: Albuterol/Ipratropium 3.0-0.5 MG/3 ML Neb Soln NEB ONE (22:44)
[2022-06-21 23:04] VITALS: BP 120/83; PULSE 88
[2022-06-21 23:04] LABS: ANION GAP 13.6 mEq/L (7-13); CHLORIDE,CL 105 mmol/L (98-107); SODIUM,NA 141 mmol/L (136-145)
[2022-06-21 23:06] LABS: ESTIMATED GFR 107 mL/min (>=60)
[2022-06-21] MEDS ORDERED: Azithromycin 250 MG Tab PO ONE (23:18)
== END 2022-06-21 23:36 | disposition home or self-care (01) ==
LOC: DL.ED 22:15
DX: J45.41 Moderate persistent asthma with (acute) exacerbation (principal); I10 Essential (primary) hypertension; Z86.16 Personal history of COVID-19
CPT/HCPCS: 36415; 71045; 80053; 83605; 85025; 94642; 96374; 99284; 99285; A9270; J2930; J7620-GY

== ENCOUNTER 2022-06-27 13:33 | Emergency (ER) | payer BC ==
[2022-06-27] MEDS ORDERED: predniSONE 20 MG Tab PO ONE (13:34)
[2022-06-27] MEDS ORDERED: Albuterol/Ipratropium 3.0-0.5 MG/3 ML Neb Soln NEB ONE (14:10)
[2022-06-27] MEDS ORDERED: methylPREDNISolone Sodium Succinate 125 MG/2 ML SDV IVPUSH ONE (14:10)
[2022-06-27] MEDS: Sodium Chloride 0.9% 10 ML Syringe FLUSH PRN ×2 (14:35→15:25)
[2022-06-27] MEDS ORDERED: Magnesium Sulfate/Water 2 GM in Premix Bag 1 BAG IV ONE ×2 (14:41→14:42)
[2022-06-27 14:50] LABS: ANION GAP 12.4 mEq/L (7-13); CHLORIDE,CL 104 mmol/L (98-107); SODIUM,NA 138 mmol/L (136-145)
[2022-06-27 14:51] LABS: ESTIMATED GFR 95 mL/min (>=60)
[2022-06-27] MEDS ORDERED: predniSONE 20 MG Tab ONE (16:19)
[2022-06-27 16:32] VITALS: BP 135/88; PULSE 73
== END 2022-06-27 16:28 | disposition home or self-care (01) ==
LOC: DL.ED 13:33
DX: J45.41 Moderate persistent asthma with (acute) exacerbation (principal); I10 Essential (primary) hypertension; Z79.899 Other long term (current) drug therapy
CPT/HCPCS: 36415; 71045; 80053; 85025; 94640; 96365; 96375; 96376; 99284; 99285-25; J2930; J3475; J3490; J7512; J7620-GY

== ENCOUNTER 2022-09-25 16:09 | Emergency (ER) | payer BC, OTHER ==
[2022-09-25 16:30] VITALS: BP 154/143; PULSE 74
== END 2022-09-25 17:04 | disposition home or self-care (01) ==
LOC: DL.ED 16:09
DX: S93.402A Sprain of unspecified ligament of left ankle, initial encounter (principal); I10 Essential (primary) hypertension; J44.9 Chronic obstructive pulmonary disease, unspecified; Z86.16 Personal history of COVID-19; Z79.899 Other long term (current) drug therapy; X50.0XXA Overexertion from strenuous movement or load, initial encounter; Y99.0 Civilian activity done for income or pay
CPT/HCPCS: 73610-LT; 99282; 99283